=== PATIENT | female | born 1975 | race Caucasian/White ===

== ENCOUNTER 2022-05-25 06:41 | Day surgery (SDC) | payer MEDICAID ==
[~2022-05-25] VITALS: Ht 162.6 cm; Wt 111.6 kg
[2022-05-25] MEDS ORDERED: MIDAZOLAM HCL 5 MG/5 ML VIAL ONE (08:27)
[2022-05-25] MEDS ORDERED: MEPERIDINE 100 MG INJ. 100 MG/ML VIAL ONE (08:27)
[2022-05-25] MEDS ORDERED: SIMETHICONE 40 MG/0.6 ML ML ONE (09:34)
[2022-05-25 15:35] VITALS: BP_SYST 101
== END 2022-05-25 11:15 | disposition home or self-care (01) ==
LOC: SDS 06:41 → SMU 06:42 → SDS 11:15
PROVIDERS: ATTEND Internal Medicine Gastroenterology
DX: Z12.11 Encounter for screening for malignant neoplasm of colon (principal); D12.3 Benign neoplasm of transverse colon; K21.00 Gastro-esophageal reflux disease with esophagitis, without bleeding; K29.50 Unspecified chronic gastritis without bleeding; B18.2 Chronic viral hepatitis C; K44.9 Diaphragmatic hernia without obstruction or gangrene; Z87.891 Personal history of nicotine dependence; Z79.899 Other long term (current) drug therapy; Z20.822 Contact with and (suspected) exposure to COVID-19
CPT/HCPCS: 45380; 43239; 87426; 87081; 36415; 88305; 88312; 88313; 99152; 99153; G0378; J2250; J2175